=== PATIENT | female | born 1945 | race Caucasian/White ===

== ENCOUNTER 2017-07-23 14:16 | Emergency (ER) | payer MEDICARE ==
[~2017-07-23] VITALS: Ht 157.5 cm; Wt 81.0 kg
[~2017-07-23 14:16] MED LIST: ALBU0.086 INH; CALC600T10 PO; LEVO.05 PO; OMEP20TA PO; OXYC1SOL6 PO
[2017-07-23 14:17] VITALS: BP 151/73; PULSE 68; RESP 16; TEMP 98.6; O2SAT 96
[2017-07-23] MEDS ORDERED: SYNT25TA PO (15:48)
[2017-07-23] MEDS ORDERED: CEPH500C PO (15:48)
--- NOTE | 2017-07-23 16:44 | PD ---
HPI Chief Complaint: Wound/Suture/Staple Re-Check Time Seen by Provider: 16:30 Travel History International Travel<30 days: No Contact w/Intl Traveler<30days: No Traveled to known affect area: No History of Present Illness HPI 72-year-old female since emergency department to have sutures removed from her left wrist. Patient had carpal tunnel surgery in [place] on 07/06/17. At her follow-up visit last week with the surgeon it was determined that the sutures needed to remain in place for 1 extra week. She then relocated to [place]. She is here for suture removal. She denies pain, drainage, fever or chills normal sensation in the extremity. PFSH Past Medical History Heart Rhythm Problems: No Cancer: No Cardiovascular Problems: No High Cholesterol: Yes Chest Pain: No Congestive Heart Failure: No Diabetes: No Diminished Hearing: No Diverticulitis: Yes Gastrointestinal Disorders: Yes (REFLUX, DIVERTICULITIS,IBS) GERD: Yes Genitourinary: Yes (KIDNEY STONES) Hepatitis: No Hiatal Hernia: Yes Hypertension: Yes (HX OF. NO MEDS PRESENTLY) Immune Disorder: No Kidney Stones: Yes Medical other: Yes (HIGH CHOLESTEROL) Musculoskeletal: Yes (SCOLIOSIS LOWER BACK) Neurologic: No Psychiatric: No Reproductive: No Respiratory: No Immunizations Current: No Thyroid Disease: Yes (ENLARGED) Tetanus Vaccination: < 5 Years Menopausal: Yes Past Surgical History Abdominal Surgery: Yes (HYSTERECTOMY LEAVING ONE OVARY/TUBE) Cardiac Surgery: No Ear Surgery: No Endocrine Surgery: Yes (PARTIAL THYROIDECTOMY) Eye Surgery: No Genitourinary Surgery: Yes (LITHOTRIPSY BILATERAL) Gynecologic Surgery: Yes (TOAL HYSTERECTOMY WITH PART OF 1 OVARY LEFT) Hysterectomy: Yes Oral Surgery: Yes (ALL 4 WISDOM TEETH REMOVED) Pacemaker: No Thoracic Surgery: No Other Surgery: Yes Social History Alcohol Use: Yes (rarely) Tobacco Use: No Substance Use: No Allergies-Medications (Allergen,Severity, Reaction): Coded Allergies: Sulfa (Sulfonamide Antibiotics) (Unverified Allergy, Severe, Rash, 07/23/17 ) MOTHER IS ALLERGIC- PT IS UNSURE OF PERSONAL ALLERGY Reported Meds & Prescriptions Reported Meds & Active Scripts Active Reported Cephalexin 500 Mg Cap 500 Mg PO Q12H Synthroid (Levothyroxine Sodium) 25 Mcg Tab 25 Mcg PO DAILY Review of Systems Except as stated in HPI: all other systems reviewed are Neg Physical Exam Narrative GENERAL: Well-nourished, well-developed patient. SKIN: Focused skin assessment warm/dry. Well healing surgical wound to the left wrist volar aspect HEAD: Normocephalic. EYES: No scleral icterus. No injection or drainage. MUSCULOSKELETAL: No cyanosis, or edema. Left wrist: 3 cm well-healing wound with sutures intact. No surrounding erythema, drainage, tenderness. Data Data Last Documented VS Vital Signs Date Time Temp Pulse Resp B/P (MAP) Pulse Ox O2 Delivery O2 Flow Rate FiO2 07/23/17 14:17 98.6 68 16 151/73 (99) 96 Room Air MDM Medical Decision Making Medical Screen Exam Complete: Yes Emergency Medical Condition: Yes Differential Diagnosis Wound recheck, suture removal Narrative Course 72-year-old female since emergency department to have sutures removed the left wrist. Patient had carpal tunnel surgery performed in [place] on 07/06/17. At her follow-up appointment last week with her surgeon it was determined the sutures needed to stay in for one week in that time. She relocated to [place]. She is here for suture removal. She has no current complaint. One suture was removed and the area slightly dehisced therefore the rest the sutures were left in place and patient was instructed to come back in 5-7 days for removal. Diagnosis Primary Impression: Encounter for wound re-check Referrals: Primary Care Physician Additional Instructions: Return in 5-7 days for suture removal. Disposition: 01 DISCHARGE HOME Condition: Stable Belinda Sandoval Jul 23, 2017 16:44
== END 2017-07-23 17:34 | disposition home or self-care (01) ==
LOC: NEPK 14:16
DX: Z48.02 Encounter for removal of sutures (principal)
CPT/HCPCS: 99281